=== PATIENT | female | born 1955 | race Caucasian/White ===

== ENCOUNTER 2018-01-02 13:32 | Emergency (ER) | payer MEDICAID ==
--- NOTE | 2018-01-02 13:51 | Emergency Department Record ---
History of Present Illness - General Chief Complaint: Back Pain/Injury Stated Complaint: SWELLING AND PAIN IN HER BACK Time Seen by Provider: 01/02/18 13:34 Source: Patient, Family Mode of Arrival: Ambulatory Limitations: No limitations - History of Present Illness Initial Comments: 62 yo female presents with lumbar pain. 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 She states she not longer has a PCP. Her is disabled. 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 She has had three days of pain. No weakness, numbness or tingling. No history of back surgery. She is out of her pain medication. Neither the patient or know why they were cut off from there doctor. No other recent changes in her health. She ambulated without difficulty in to the ED. MD Complaint: Back pain -: Days(s) (3) Place: Home Radiation: None Severity: Moderate Quality: Aching Consistency: Constant Worsens With: Movement Context: Bending, While lifting, Other Associated Symptoms: Denies other symptoms - Related Data Home Medications Medication Instructions Recorded Confirmed Last Taken Hydrocodone/Acetaminophen [Adrian 1 tab PO Q4H PRN 01/02/18 01/02/18 Unknown 10mg/325mg] Morphine Sulfate 30 mg PO BID 01/02/18 01/02/18 Unknown Temazepam [Restoril] 30 mg PO QHS 01/02/18 01/02/18 Unknown Previous Rx's Medication Instructions Recorded Hydrocodone/Acetaminophen [Adrian 1 each PO Q6H #12 tablet 01/02/18 7.5-325 Tablet] Allergies Allergy/AdvReac Type Severity Reaction Status Date / Time No Known Drug Allergies Allergy Verified 01/02/18 13:46 Review of Systems Constitutional: Denies: Chills, Fever, Malaise, Weakness Eyes: Denies: Eye discharge ENT: Denies: Congestion, Throat pain Respiratory: Denies: Cough Cardiovascular: Denies: Chest pain, Palpitations, Syncope Endocrine: Denies: Fatigue Gastrointestinal: Denies: Abdominal pain, Diarrhea, Nausea, Vomiting, Other Genitourinary: Denies: Dysuria, Urgency Musculoskeletal: Reports: As per HPI, Arthralgia, Back pain Skin: Denies: Bruising, Change in color, Rash Neurological: Denies: Abnormal gait, Confusion, Headache, Numbness, Paresthesias , Seizure, Tingling, Tremors, Vertigo, Weakness Psychiatric: Denies: Anxiety Hematological/Lymphatic: Denies: Blood Clots, Easy bleeding, Easy bruising, Swollen glands Physical Exam - General General Appearance: Alert, Oriented x3, Cooperative, No acute distress Limitations: No limitations - Head Head exam: Atraumatic, Normal inspection - Eye Eye exam: Normal appearance - ENT ENT exam: Normal exam Ear exam: Normal external inspection Nasal Exam: Normal inspection Mouth exam: Normal external inspection - Neck Neck exam: Normal inspection - Respiratory Respiratory exam: Normal lung sounds bilaterally. negative: Respiratory distress, Rhonchi, Stridor, Wheezes - Cardiovascular Cardiovascular Exam: Regular rate, Normal rhythm, Normal heart sounds - GI/Abdominal GI/Abdominal exam: Soft. negative: Tenderness - Rectal Rectal exam: Deferred - exam: Deferred - Extremities Extremities exam: Normal inspection, Normal capillary refill. negative: Calf tenderness, Full ROM, Pedal edema, Tenderness - Back Back exam: Reports: Normal inspection, Muscle spasm, Paraspinal tenderness, Tenderness, Vertebral tenderness (low lumbar), Other (The patient ambulates on her own, she stands and sits on her own. No limitations). Denies: CVA tenderness (R), CVA tenderness (L) - Neurological Neurological exam: Alert, Normal gait, Oriented X3, Reflexes normal. negative: Abnormal gait, Altered, Motor sensory deficit - Psychiatric Psychiatric exam: Normal affect, Normal mood. negative: Agitated, Anxious - Skin Skin exam: Dry, Intact, Normal color, Warm Course - Reevaluation(s) Reevaluation #1: MAPS reviewed No history of abuse but long history of Adrian, Morphine,Lyrica,Temazpam [facility] Message left. 01/02/18 13:56 01/02/18 14:13 The preliminary XR was reviewed multilevel degenerative changes, mild spondylolithesis L5-S1 I discussed at length the MAPS. The patient and SO did not understand the changes in prescribing from there doctor. They have an appointment in 6 days. She will be given a very limited number of pain pills until follow up to discuss future plans for pain control. 01/02/18 14:50 I explained the MAPS process and the need to see her PCP. She understands now how to make the number of pills last the time frame prescribed. No call back from her PCP during this ER visit. Disposition Disposition: Discharge Clinical Impression: Chronic back pain Qualifiers: Back pain location: low back pain Back pain laterality: bilateral Sciatica presence: without sciatica Qualified Code(s): M54.5 - Low back pain Disposition: Home, Self-Care Condition: (1) Good Instructions: Low Back Strain (ED) Additional Instructions: Call The [facility] for close follow up You will need all longterm medications to come through your doctors at the medical clinic. Prescriptions: Hydrocodone/Acetaminophen [Adrian 7.5-325 Tablet] 1 each PO Q6H #12 tablet Forms: Patient Portal Access Time of Disposition: 14:24 Quality - Quality Measures Quality Measures: N/A - Blood Pressure Screening Does Patient Have Any of the Following: No Blood Pressure Classification: Normal BP Reading Systolic Measurement: 87 Diastolic Measurement: 64 Screening for High Blood Pressure: < Normal BP, F/U Not Required > [G8783]
--- NOTE | 2018-01-03 08:50 | RADIOLOGY REPORT ---
EXAM: LUMBAR SPINE HISTORY: BACK PAIN. TECHNIQUE: AP, lateral and oblique views of the lumbar spine were performed. Comparison: None. FINDINGS: There is mild dextroconvex scoliotic curvature. There is osteopenia. No compression fracture deformity. No significant disk space narrowing. No significant neural foraminal narrowing. IMPRESSION: OSTEOPENIA. MILD DEXTROCONVEX SCOLIOTIC CURVATURE. NO COMPRESSION FRACTURE DEFORMITY. J[facility]BER: [id number] [facility]
== END 2018-01-02 14:47 | disposition home or self-care (01) ==
LOC: ER 13:32
DX: G89.29 Other chronic pain (principal); M54.5 Low back pain; F17.210 Nicotine dependence, cigarettes, uncomplicated
CPT/HCPCS: 72110; 99283